=== PATIENT | female | born 1950 | race Caucasian/White ===

== ENCOUNTER → 2020-03-17 | Outpatient (CLI) | payer MEDICARE, SELFPAY ==
--- NOTE | 2020-03-17 14:00 | PET_ITS ---
EXAMINATION: FDG PET CT INDICATIONS: A 69-year-old female with history of pulmonary nodularity. COMPARISON EXAMINATION: CT of the chest report dated 01/19/20. INDEX LESION SIZE SUV INTERPRETATION Left lower medial lung-left lower lobe 17.6 mm (frame 154) 0.7 Quantitative criteria for viable neoplasm are not fulfilled, sequential radiologic investigation recommended TECHNIQUE: Following the intravenous administration of 13.61 mCi of F-18 deoxyglucose via the left antecubital fossa, multiplanar image acquisitions of the neck, chest, abdomen and pelvis to level of mid thigh, obtained at one hour post radiopharmaceutical administration contemporaneously interpreted with the current CT of the neck, chest, abdomen and pelvis to level of mid thigh, dated 03/17/[address] of the chest report dated 01/19/20 reveal: SERUM GLUCOSE LEVEL: 91 mg/dl. HEIGHT: 62 inches. WEIGHT: 123 lbs. FINDINGS: 1. Barely perceptible increased FDG concentration is noted in the left lower medial lung-left lower lobe generating a calculated maximum standard uptake value of 0.7. The maximal axial diameter of the corresponding parenchymal density on review of CT of the chest dated 03/17/20 is 17.6 mm. 2. Normal physiologic distribution of the radiopharmaceutical is apparent in the hepatic (2.2) and splenic parenchyma, both renal units, bladder and visualized intestinal tract. There is uniform distribution of the radiopharmaceutical concentration defined in the visualized cerebellar hemispheres and cerebral cortical structures. Diffuse intestinal tract activity is noted throughout all four quadrants of the abdominal-pelvic retroperitoneum and mesentery consistent with normal physiologic distribution of the radiopharmaceutical. Prominent radiopharmaceutical concentration is observed in the left ventricular myocardium commensurate with the FED state. Pertinent CT findings are as follows. CHEST: Emphysematous changes are noted in the bilateral upper-mid lung zones. There are no additional parenchymal densities-nodules defined in the right and left hemithorax demonstrating discernible, quantitatively significant increased FDG uptake. Atherosclerotic calcification is defined in the thoracic aorta without evidence of dilatation, aneurysm formation. Bilateral axillary soft tissue densities with fatty hilus are non-glucose avid. ABDOMEN AND PELVIS: Atherosclerotic calcification is defined in the abdominal aorta without evidence of dilatation, aneurysm formation. Pelvic arterial calcification is observed. Significant beam-hardening artifact is demonstrated in the lower pelvis attributed to right and left hip prostheses. Calcified granuloma formation is noted within the hepatic parenchyma. SKELETAL: Degenerative changes defined in the cervical, thoracic and lumbar spine demonstrate no evidence of glucose hypermetabolism. PET/PET/CT Tumor Base -Thigh Init IMPRESSION: 1. NEGATIVE EXAMINATION. There is no definitive quantitative scintigraphic evidence of viable neoplasm. 2. Increased glucose concentration barely discernible in the left lower medial lung-left lower lobe does not fulfill quantitative criteria for viable neoplasm. (Wade et al, Annals of Internal Medicine, 138:724, 2003). 3. Metabolic and/or anatomic stability may be ensured in the left hemithorax pulmonary parenchymal abnormality with repeat FDG PET study and/or CT of the thorax in three-six months if clinically indicated. (Xiu, Journal of Nuclear Medicine 45:88, P2004. Yahir, Seminars in Thoracic and Cardiovascular Surgery 14:292, 2002). Electronic Signature Juan Ramires D.O. Electronically Signed: Juan Ramires DO at 9:44 EDT Tel , Service support ,
== END | disposition home or self-care (01) ==
PROVIDERS: PCP Family Medicine; Referring Provider Internal Medicine Pulmonary Disease; Visit Provider Internal Medicine Pulmonary Disease
DX: R91.8 Other nonspecific abnormal finding of lung field (principal)
CPT/HCPCS: 78815; A9552

== ENCOUNTER → 2020-09-12 12:43 | Outpatient (CLI) | payer MEDICARE, SELFPAY ==
--- NOTE | 2020-09-12 12:45 | CT_ITS ---
INDICATION: Lung nodule follow up, no chest pain or SOB. Hx hypertension, former smoker. EXAMINATION: CT CHEST WITHOUT CONTRAST - CT Chest W/O Contrast Injection TECHNIQUE: Helically acquired images were obtained of the chest. A radiation dose optimization technique was used for this scan. IV Contrast dosage and agent: None. COMPARISON: Previous PET/CT scan obtained on 03/09/2020 FINDINGS: LUNGS, PLEURA AND LARGE AIRWAYS: A stable nodular density measuring 1.6 x 1 cm in size is seen in the left lower lobe which was noted on the previous PET/CT scan and is unchanged. On the previous PET/CT scan SUV values were low indicating this probably represents a benign entity such as a granuloma and/or hamartoma No pleural effusion or thickening. Emphysematous changes are noted in the upper lungs bilaterally. THYROID: No thyroid lesions. HEART AND PERICARDIUM: Heart size is normal. No pericardial effusion. VESSELS: Thoracic aorta is not dilated. MEDIASTINUM AND YING: No mediastinal or hilar adenopathy. Esophagus is unremarkable. No hiatal hernia. UPPER ABDOMEN: No acute pathology. BONES: No suspicious lytic or blastic abnormality. CT/Chest without Contrast IMPRESSION: Stable nodular densities noted in the left lower lobe. The lack of change since the prior PET/CT scan indicates that it probably represents a benign entity such as a granuloma or hamartoma. A follow-up CT scan in 6 months to a year would be helpful for further evaluation. Electronically Signed: Johnson Jones, at 16:53 EST Tel , Service support ,
== END ==
PROVIDERS: PCP Family Medicine; Referring Provider Internal Medicine Pulmonary Disease; Visit Provider Internal Medicine Pulmonary Disease
DX: R91.1 Solitary pulmonary nodule (principal)
CPT/HCPCS: 71250

== ENCOUNTER → 2021-04-11 12:59 | Outpatient (CLI) | payer MEDICARE, SELFPAY ==
--- NOTE | 2021-04-11 13:05 | CT_ITS ---
STUDY: CT CHEST WITHOUT CONTRAST REASON FOR EXAM: Female, 70 years old. PULMONARY NODULE follow-up RADIATION DOSAGE (If Supplied By Facility): CTDIvol = ( 6.12 ) mGy, DLP = ( 217.20 ) mGycm TECHNIQUE: Transaxial imaging was performed without the administration of intravenous contrast material. Individualized dose optimization techniques were used for this CT. COMPARISON: CT chest 09/12/2020 and PET/CT 03/17/2020. FINDINGS: Subcentimeter left thyroid lobe hypodense nodule. Mild to moderate diffuse emphysematous changes are unchanged. Left lower lobe nodular density measures approximately 1.2 x 1.3 x 1.9 cm (previously 1.2 x 1.2 x 2.1 cm when measured in a similar manner) . Stable 7 x 5 mm groundglass nodular density in the left lower lobe on image 90. There is no new pulmonary nodule. There is no demonstrated pleural abnormality. Normal heart and pericardium. There are trace coronary artery calcifications. Mild mitral annular calcification. Normal mediastinum. Normal hilar regions. Normal unenhanced pulmonary arteries. There is mild atherosclerotic disease of the aortic arch and descending thoracic aorta. There are multi-level degenerative changes of the thoracic spine. There is no demonstrated abnormality of the visualized upper abdomen. CT/Chest without Contrast IMPRESSION: Stable left lower lobe nodular density is unchanged since 03/17/2020. Stable 7 x 5 mm groundglass nodular density in the left lower lobe. No new pulmonary nodule. Continued annual chest CT is recommended. Electronically Signed: Jerri Haynes MD at 10:09 EDT Tel , Service support ,
== END ==
PROVIDERS: PCP Family Medicine; Referring Provider Internal Medicine Pulmonary Disease; Visit Provider Internal Medicine Pulmonary Disease
DX: R91.1 Solitary pulmonary nodule (principal)
CPT/HCPCS: 71250

== ENCOUNTER → 2021-06-23 08:14 | Outpatient (CLI) | payer MEDICARE, SELFPAY ==
--- NOTE | 2021-06-23 08:16 | RAD_ITS ---
CLINICAL INDICATION: Dysphagia, pain. EXAM: Double contrast esophagram.. TECHNIQUE: Standard double phase esophagram performed with effervescent capsules and thick and thin barium. Fluoroscopy time: 3:17 minutes/seconds. Number of images: 10 spot fluoroscopic series. FINDINGS: Surgical clips visualized superimposed over the neck. Unremarkable oropharyngeal phase of swallowing, unremarkable transit through the upper esophagus. Irregular esophageal motility was observed. The esophagus demonstrates unremarkable contours was no evidence of strictures or diverticula, small type I hiatus hernia is visualized with no significant gastroesophageal reflux seen.. RAD/Esophagus Dual Contrast IMPRESSION: Irregular esophageal motility, small type I hiatus hernia. Electronically Signed: Nilson Combs MD at 11:18 EDT Tel , Service support ,
== END ==
PROVIDERS: PCP Family Medicine; Visit Provider Internal Medicine Gastroenterology
DX: R13.10 Dysphagia, unspecified (principal)
CPT/HCPCS: 74221

== ENCOUNTER 2021-08-02 17:47 | Emergency (ER) | payer MEDICARE, SELFPAY ==
[2021-08-02 17:52] VITALS: BP 161/69; PULSE 69; RESP 17; TEMP 36.3; O2SAT 98; BMI 18.6
--- NOTE | 2021-08-02 18:19 | CT_ITS ---
STUDY: CT BRAIN WITHOUT CONTRAST REASON FOR EXAM: Female, 71 years old. Mental status change. Dementia. RADIATION DOSAGE (If Supplied By Facility): CTDIvol = ( 44.99 ) mGy, DLP = ( 745.49 ) mGycm TECHNIQUE: Transaxial CT imaging of the brain was performed without administration of intravenous contrast material. Individualized dose optimization techniques were used for this CT. COMPARISON: No relevant priors. FINDINGS: Normal soft tissue structures. Normal calvarium. Normal size ventricles and extra-axial spaces for the patient''s age. There are areas of decreased attenuation within the white matter tracts of the supratentorial brain, consistent with microvascular disease changes. Normal basal ganglia and thalami. Normal brainstem. Normal cerebellum. There is no intracranial hemorrhage. There are no findings of an acute ischemic infarction. Normal visualized paranasal sinuses. CT/Brain/Head without Contrast IMPRESSION: Microvascular disease without cortical atrophy. There is no acute intracranial or calvarial abnormality. Electronically Signed: Kedar Rivera DO at 19:01 EDT Tel [phone], Service support ,
--- NOTE | 2021-08-02 18:20 | EKG12_ITS ---
Test Reason : DYSRHYTHMIA Blood Pressure : / mmHG Vent. Rate : 063 BPM Atrial Rate : 063 BPM P-R Int : 114 ms QRS Dur : 130 ms QT Int : 446 ms P-R-T Axes : 074 000 079 degrees QTc Int : 456 ms Sinus rhythm with Premature atrial complexes Non-specific intra-ventricular conduction block Abnormal ECG Confirmed by SHA ALEXANDER, JESUS MANUEL ([id number]), scientific editor ALISSA MELENDEZ ([id number]) on 08/08/2021 6:45:26 AM Referred By: LORENZO Confirmed By:JESUS MANUEL DALTON MD
--- NOTE | 2021-08-02 18:21 | EDS_ITS ---
HPI History of Present Illness Chief Complaint: Mental Status Change Detail of Chief Complaint: Mental status change worsening over the last 3 weeks Informant: patient and family Narrative Narrative: Patient presents to the emergency department with complaint of mental status change that is worsened over last 3 weeks per her son who is with her. Patient has been living at home independently until the son came back about a month ago. Patient's had several visits to the emergency department at [facility] and has been told she has dementia. Son states that she is lost 15 pounds in the last 2 weeks and is not eating. Patient stayed up 2 nights talking to a trash can. Adult Protective Services apparently came in today and recommended that they come to the emergency department to be evaluated for possible placement to [facility] psych facility. Patient denies recent illness and has had the Covid vaccine. She denies chest pain or abdominal pain. Son tells me that there is family history of psychiatric disorders. [facility] Medical History (Updated 08/02/21 @ 23:[address] Scout Berman, ) CKD (chronic kidney disease) COPD (chronic obstructive pulmonary disease) Dementia Depression Expressive aphasia Familial hypocalciuric hypercalcemia Fibromyalgia GERD (gastroesophageal reflux disease) Hiatal hernia HTN (hypertension) Hyperlipemia Hypothyroid Home Medications ascorbic acid (vitamin C) 1 cap PO DAILY 08/02/21 [History Last Taken Unknown] aspirin [Aspir-81] 81 mg PO DAILY 08/02/21 [History Last Taken Unknown] biotin 10 mg PO DAILY 08/02/21 [History Last Taken Unknown] buspirone 5 mg PO BID 08/02/21 [History Last Taken Unknown] carvedilol 25 mg PO BID 08/02/21 [History Last Taken Unknown] cetirizine 10 mg PO DAILY 08/02/21 [History Last Taken Unknown] cholecalciferol (vitamin D3) 25 mcg PO DAILY 08/02/21 [History Last Taken Unknown] duloxetine 20 mg PO DAILY 08/02/21 [History Last Taken Unknown] hydralazine 100 mg PO TID 08/02/21 [History Last Taken Unknown] levothyroxine 25 mcg PO DAILY 08/02/21 [History Last Taken Unknown] lisinopril 5 mg PO DAILY 08/02/21 [History Last Taken Unknown] lorazepam 1 mg PO QHS 08/02/21 [History Last Taken Unknown] memantine 10 mg PO DAILY 08/02/21 [History Last Taken Unknown] pantoprazole 20 mg PO DAILY 08/02/21 [History Last Taken Unknown] sumatriptan succinate 25 mg PO BID 08/02/21 [History Last Taken Unknown] Allergy/AdvReac Type Severity Reaction Status Date / Time carisoprodol Allergy PT UNSURE Verified 08/02/21 17:51 OF REACTION cetirizine Allergy PT UNSURE Verified 08/02/21 17:51 OF REACTION guaifenesin Allergy PT UNSURE Verified 08/02/21 17:51 OF REACTION mirtazapine Allergy PT UNSURE Verified 08/02/21 17:51 OF REACTION oxaprozin [From Daypro] Allergy PT UNSURE Verified 08/02/21 17:51 OF REACTION phenylephrine Allergy PT UNSURE Verified 08/02/21 17:51 OF REACTION phenylpropanolamine Allergy PT UNSURE Verified 08/02/21 17:51 [From [employer] [place]] OF REACTION Social History Smoking Status: Never smoker ROS ROS ED Constitutional Constitutional ED: Reports systems reviewed and no addt'l complaints, except as documented; Denies body ache(s), change in weight or chills Eyes Eyes: Denies acute decrease in peripheral vision, change in vision, double vision or loss of vision ENT ENT ED: Reports none; Denies ear pain, lip swelling, loss taste/smell, neck pain, otalgia or sore throat Cardiovascular Cardiovascular: Reports none; Denies abdominal pain, chest pain with activity, leg edema, lightheadedness, palpitations, rapid heart rate or syncope Respiratory/Chest Respiratory/Chest: Reports none; Denies change in mental status, dry cough, dyspnea, hemoptysis, shortness of breath at rest or shortness of breath with exertion Gastrointestinal Gastrointestinal: Reports none; Denies abdominal pain, change in stool character, diarrhea, hematemesis, hematochezia, melena, rectal bleeding or vomiting Genitourinary Genitourinary ED: Reports none; Denies abdominal discomfort, anuria, dysuria, genital pain or polyuria Musculoskeletal Musculoskeletal: Reports none; Denies arthralgias, back pain, difficulty walking, extremity pain, muscle weakness or myalgias Integumentary Reports none; Denies abscess or rash Neurologic Neurologic: Reports none and other Details: Confusion ; Denies abnormal gait, confusion, focal weakness, frequent falls, headache(s), loss of vision, numbness, paresthesias, radicular pain, vertigo or weakness Psychiatric Psychiatric: Reports systems reviewed and no addt'l complaints, except as documented and none; Denies behavioral changes, confusion, difficulty concentrating, hallucinations, suicidal ideation, tactile hallucinations or visual hallucinations Endocrine Endocrinology: Denies none, cold intolerance, excessive sweating, fatigue or heat intolerance Hematologic/Lymphatic Hematologic/Lymphatic: Reports none; Denies anemia, easy bleeding or easy bruising Allergic/Immunologic Allergic/Immunologic ED: Denies as per HPI, none, lip swelling, mouth swelling, throat swelling, tongue swelling or hives EXAM Physical Exam Const Vital Signs: 08/02/21 17:52 08/02/21 20:58 08/02/21 23:18 Temperature 97.3 F L Temperature Source Temporal Pulse Rate 69 79 Respiratory Rate 17 16 18 Blood Pressure 161/69 H 152/70 H Blood Pressure Mean 99 97 Pulse Ox 98 Oxygen Delivery Method Room Air Room Air Positive well nourished and well developed General Appearance ED: well developed and NAD HEENT Reports TM's clear and moist mucous membranes normocephalic and atraumatic; Negative for trauma or tenderness Tympanic Membrane ED: Yes TM's clear Eyes PERRL and EOMs intact bilaterally General Eye ED: Negative for pale conjunctiva or scleral icterus Neck no lymphadenopathy, supple and no JVD General: Negative for tenderness Chest Wall inspection of chest normal and palpation of chest normal Chest: Negative for tenderness Resp normal respiratory effort and clear to auscultation bilaterally Effort and Inspection: Negative for respiratory distress or pain with movement Auscultation: Negative for rhonchi, wheezes or diminished lung sounds Cardio regular rate, regular rhythm, S1 normal heart sound, S2 normal heart sound and no murmurs Peripheral Pulses: pulses 2+ throughout GI normal to inspection, nondistended, normoactive bowel sounds, soft to palpation, non-tender, non-distended and no masses Back/Spine no CVA tenderness and no thoracic nor lumbar tenderness Extremity normal to inspection General Extremety ED: Negative for edema General Extremity: Negative for edema Neuro CN's II-XII intact bilaterally, no sensory deficits noted and gait normal Neuro Narrative: Patient alert to self and place but not to time. Patient answers questions inappropriately at times. Sensorium / Orientation: awake, alert, oriented to person, oriented to place and oriented to time Motor Exam: strength 5/5 throughout and strength abnormal Psych mental status grossly normal Skin no rashes or lesions noted and no wounds MDM MDM MDM Narrative Medical decision making narrative: Case discussed with tobacco farmworker who will evaluate patient for placement to [facility] facility for definitive treatment and stabilization. Patient's work-up in the emergency department was unremarkable. I suspect patient likely has worsening dementia as well as possibly bipolar disorder and psychosis. Lab Data Attestation: I reviewed the patient's lab results. Labs: Laboratory Results - last 24 hr 08/02/21 08/02/21 08/02/21 18:30 18:30 18:30 WBC 6.1 RBC 4.16 L Hgb 13.1 Hct 38.4 MCV 92.3 MCH 31.5 MCHC 34.1 RDW Std Deviation 45.1 H RDW Coeff of Nitin 13.4 Plt Count 180 MPV 12.1 H Immature Gran % (Auto) 0.300 Neut % (Auto) 51.5 Lymph % (Auto) 32.4 [place] % (Auto) 12.4 H Eos % (Auto) 2.4 Baso % (Auto) 1.0 Absolute Neuts (auto) 3.2 Absolute Lymphs (auto) 1.99 Nucleated RBC % 0 Sodium 138 Potassium 3.4 L Chloride 105 Carbon Dioxide 27.0 Anion Gap 6 BUN 13 Creatinine 0.95 Estim Creat Clear Calc 38.52 Est GFR (MDRD) Af Amer 74 Est GFR (MDRD) Non-Af 62 BUN/Creatinine Ratio 13.7 Glucose 101 Calcium 10.5 H Urine Color Urine Clarity Urine pH Ur Specific Heber Urine Protein Urine Glucose (UA) Urine Ketones Urine Occult Blood Urine Nitrite Urine Bilirubin Urine Urobilinogen Ur Leukocyte Esterase Urine RBC Urine WBC Ur Squamous Epith Cells Urine Bacteria Urine Mucus Urine Opiates Screen Urine Methadone Screen Ur Barbiturates Screen Ur Phencyclidine Scrn Ur Amphetamines Screen U Methamphetamin-MDMA U Benzodiazepines Scrn Urine Cocaine Screen U Cannabinoids Screen Ur Drug Screen Comment Ethyl Alcohol < 3.0 08/02/21 08/02/21 18:35 18:35 WBC RBC Hgb Hct MCV MCH MCHC RDW Std Deviation RDW Coeff of Nitin Plt Count MPV Immature Gran % (Auto) Neut % (Auto) Lymph % (Auto) [place] % (Auto) Eos % (Auto) Baso % (Auto) Absolute Neuts (auto) Absolute Lymphs (auto) Nucleated RBC % Sodium Potassium Chloride Carbon Dioxide Anion Gap BUN Creatinine Estim Creat Clear Calc Est GFR (MDRD) Af Amer Est GFR (MDRD) Non-Af BUN/Creatinine Ratio Glucose Calcium Urine Color Yellow Urine Clarity Clear Urine pH 5.0 Ur Specific Heber 1.025 Urine Protein Negative Urine Glucose (UA) Normal Urine Ketones 50 H Urine Occult Blood Negative Urine Nitrite Negative Urine Bilirubin 1 H Urine Urobilinogen 1 H Ur Leukocyte Esterase Negative Urine RBC 0 SEEN Urine WBC 0 SEEN Ur Squamous Epith Cells 0 SEEN Urine Bacteria 0 SEEN Urine Mucus 0 SEEN Urine Opiates Screen NEGATIVE Urine Methadone Screen NEGATIVE Ur Barbiturates Screen NEGATIVE Ur Phencyclidine Scrn NEGATIVE Ur Amphetamines Screen NEGATIVE U Methamphetamin-MDMA NEGATIVE U Benzodiazepines Scrn NEGATIVE Urine Cocaine Screen NEGATIVE U Cannabinoids Screen NEGATIVE Ur Drug Screen Comment Ethyl Alcohol Radiography Diagnostic Testing: Clinical Impression(s) from Imaging Studies Brain CT 08/02/21 18:19 IMPRESSION: Microvascular disease without cortical atrophy. There is no acute intracranial or calvarial abnormality. Electronically Signed: Kedar Rivera DO at 19:01 EDT Tel [phone], Service support , EKG Initial EKG: Attestation: I personally reviewed and interpreted this EKG as follows: Comments: Sinus rhythm with a ventricular rate of 63 bpm with occasional PACs and nonspecific intraventricular conduction delay Discharge Plan Triage Chief Complaint: Mental Status Change ED Provider: Scout Berman Dx/Rx/DC Orders Clinical Impression: Dementia Prescriptions: No Action buspirone 5 mg tablet 5 mg PO BID RF: 0 carvedilol 25 mg tablet 25 mg PO BID RF: 0 cetirizine 10 mg tablet 10 mg PO DAILY RF: 0 biotin 5 mg Capsule 10 mg PO DAILY RF: 0 sumatriptan succinate 25 mg tablet 25 mg PO BID RF: 0 aspirin [Aspir-81] 81 mg Tablet,Delayed Release (Dr/Ec) 81 mg PO DAILY RF: 0 levothyroxine 25 mcg tablet 25 mcg PO DAILY RF: 0 pantoprazole 20 mg tablet,delayed release (DR/EC) 20 mg PO DAILY RF: 0 hydralazine 100 mg tablet 100 mg PO TID RF: 0 lisinopril 5 mg tablet 5 mg PO DAILY RF: 0 lorazepam 1 mg tablet 1 mg PO QHS RF: 0 ascorbic acid (vitamin C) 1,000 mg Capsule, Extended Release 1 cap PO DAILY RF: 0 cholecalciferol (vitamin D3) 25 mcg (1,000 unit) Capsule 25 mcg PO DAILY RF: 0 memantine 5 mg tablet 10 mg PO DAILY RF: 0 duloxetine 60 mg capsule,delayed release(DR/EC) 20 mg PO DAILY RF: 0 Primary Care Provider: Lydia Ross Referrals: Lydia Ross DO [Primary Care Provider] - Disposition Disposition: Psychiatric Hospital or Unit
[2021-08-02 18:42] LABS: Absolute Lymphocyte Count 1.99 X10^3/uL (0.83-4.51); Absolute Neutrophil Count 3.2 X10^3/uL (2.0-7.7); Basophil# 0.06 X10^3/uL; Eosinophil# 0.15 X10^3/uL; Eosinophils% 2.4 % (0-5); Hematocrit 38.4 % (37-47); Hemoglobin 13.1 g/dL (12.0-15.0); Lymphocyte # 1.99 X10^3/ul (0.83-4.51); Lymphocyte % 32.4 % (19-41); Mean Corp Hgb Conc 34.1 g/dL (32-36); Mean Corpuscular Hgb 31.5 pg (27.0-32.0); Mean Corpuscular Volume 92.3 fL (81-99); Mean Platelet Vol. 12.1 fl (6.2-12.0); Monocyte# 0.76 X10^3/uL; Monocyte% 12.4 % (0-10); NRBC Flagged by Analyzer 0 % (0-5); Neutrophil # 3.16 X10^3/uL (2.7-7.7); Neutrophil % 51.5 % (47-70); Platelet Count 180 K/mm3 (150-450); RBC Distribution Width CV 13.4 % (11.6-14.6); RBC Distribution Width SD 45.1 fl (35.1-43.9); Red Blood Count 4.16 M/mm3 (4.2-5.4); White Blood Count 6.1 K/mm3 (4.4-11.0)
[2021-08-02 18:44] LABS: Bacteria 0 SEEN /hpf (None Seen); Mucous, Urine 0 SEEN /hpf (<or=2+); Red Blood Cells-Urine 0 SEEN /hpf (0-5); Squamous Epithelial Cells - UA 0 SEEN /hpf (5-10); White Blood Cells 0 SEEN /hpf (0-5)
[2021-08-02 18:45] LABS: Color, Urine Yellow (Yellow); Glucose, Dipstick Normal (Normal); Ketone-Dipstick 50 mg/dl (Negative); Leukocyte Esterase-Dipstick Negative /ul (Negative); Nitrite-Dipstick Negative (Negative); Occult Blood-Urine Negative /ul (Negative); Protein-Dipstick Negative (Negative); Specific Gravity, Urine 1.025 (1.002-1.030); Urine Clarity Clear (Clear); Urine Urobilinogen 1 mg/dl (Normal)
[2021-08-02 18:47] LABS: Urine Bilirubin Dipstick 1 mg/dL (Negative)
[2021-08-02 18:53] LABS: Anion Gap 6 (5-15); BUN 13 mg/dL (7-18); BUN/Creat Ratio 13.7 RATIO (10-20); Calcium,Total 10.5 mg/dL (8.5-10.1); Chloride 105 mmol/L (98-107); Creatinine, Serum 0.95 mg/dL (0.55-1.02); EST Glomerular Filtration Rate 62 mL/min (>60); Est Glom Filt Rate - Afr Amer 74 mL/min (>60); Estimated Creatinine Clearance 38.52 ml/min; Glucose 101 mg/dL (74-106); Potassium 3.4 mmol/L (3.5-5.1); Sodium Level 138 mmol/L (136-145)
[2021-08-02 19:00] LABS: Alcohol, Blood (Medical)-Serum < 3.0 mg/dL
[2021-08-02 19:01] LABS: Amphetamine Urine VISTA NEGATIVE (<1000 ng/mL); Barbiturate Urine VISTA NEGATIVE (< 200 ng/mL); Benzodiazepine Urine VISTA NEGATIVE (< 200 ng/mL); Cocaine Urine VISTA NEGATIVE (< 300 ng/mL); Ecstacy Urine VISTA NEGATIVE (< 500 ng/mL); Methadone Urine VISTA NEGATIVE (< 300 ng/mL); PCP Urine VISTA NEGATIVE (< 25 ng/mL); THC Urine VISTA NEGATIVE (< 50 ng/mL); Vista UDS pH Range 5
[2021-08-02 20:58] VITALS: RESP 16
[2021-08-02 23:18] VITALS: BP 152/70; PULSE 79; RESP 18
--- NOTE | 2021-08-03 00:16 | ED.RN ---
REFERRAL TO [facility]
[2021-08-03 03:53] VITALS: BP 146/67; PULSE 86; RESP 18
--- NOTE | 2021-08-03 05:28 | ED.RN ---
CRISIS CALLED AND SAID THAT [facility] NEED[facility] A PCR COVID AND A EKG
[2021-08-03 05:44] VITALS: BP 137/65
--- NOTE | 2021-08-03 06:45 | ED.RN ---
patient pending acceptance to [facility]. asking for ekg. ekg sent to them. They will call back with acceptance and set up transport once reviewed
--- NOTE | 2021-08-03 07:14 | ED.RN ---
AWAITING PCR COVID TEST TO FAX
[2021-08-03] MEDS: Levothyroxine 25 MCG TABLET PO (07:23)
[2021-08-03] MEDS: Aspirin 81 MG TAB.CHEW PO (07:24)
[2021-08-03] MEDS: Carvedilol 25 MG Tablet PO (07:24)
[2021-08-03 07:29] VITALS: BP 142/77; PULSE 65; RESP 18; O2SAT 95
--- NOTE | 2021-08-03 07:59 | ED.RN ---
[facility] TO BE HERE AT 1030 TO TRANSFER PT
--- NOTE | 2021-08-03 08:16 | ED.RN ---
Levothyroxine 25 mcg given at 0724 with other morning medications. Karo RN at bedside with this nurse and verified.
[2021-08-03 08:24] VITALS: BP 128/59; PULSE 70; RESP 14; O2SAT 92
--- NOTE | 2021-08-03 08:24 | NURSING ---
FAXED PCR COVID AND EKG TO [facility]
--- NOTE | 2021-08-03 08:33 | ED.RN ---
Attempted to call reports. Phone continuously rang with no answer.
[2021-08-03 09:45] VITALS: BP 99/52; PULSE 54; RESP 16; O2SAT 94
[2021-08-03 09:57] VITALS: BP 99/52; PULSE 54; RESP 16; TEMP 36.3; O2SAT 94
--- NOTE | 2021-08-04 12:43 | CASEMGMT ---
Social Work Note SW received call from Saul with APS requesting update on pt. SW reviewed chart. Pt was sent to [facility] placement. KASSIE updated Saul with [facility] of this. Ariadna Ferrera SUPPORT SERVICES MANAGER, COVER MAT MACHINE OPERATOR
== END 2021-08-03 10:01 ==
PROVIDERS: Emergency Medicine; Emergency Provider Emergency Medicine; PCP Family Medicine
DX: F03.90 Unspecified dementia, unspecified severity, without behavioral disturbance, psychotic disturbance, mood disturbance, and anxiety (principal); J44.9 Chronic obstructive pulmonary disease, unspecified; I12.9 Hypertensive chronic kidney disease with stage 1 through stage 4 chronic kidney disease, or unspecified chronic kidney disease; N18.9 Chronic kidney disease, unspecified; F32.A Depression, unspecified; M79.7 Fibromyalgia; K21.9 Gastro-esophageal reflux disease without esophagitis; E78.5 Hyperlipidemia, unspecified; E03.9 Hypothyroidism, unspecified; Z79.899 Other long term (current) drug therapy
CPT/HCPCS: 70450; 80048; 80307; 81001; 82077; 85025; 87426; 87635; 93005; 99285; U0005; U0003